=== PATIENT | female | born 1935 | race Caucasian/White ===

== ENCOUNTER 2016-12-24 18:21 | Emergency (ER) | payer MEDICARE ==
[~2016-12-24] VITALS: Ht 162.6 cm; Wt 82.7 kg
[~2016-12-24 18:21] MED LIST: ALLO300T2 PO; ALPR0.254 PO; ASPI-973 PO; BACL10TA PO; CHOL10008 PO; CLOB59SP3 TP; CYAN100017 SL; DOCU250C2 PO; ERGO400T7 PO; FURO-128 PO; INSU100V27 SQ; LISI10TA PO; METF500T4 PO; METO37.5 PO; NORT75CA PO; NPH,100V11 SUBQ; OMEP20CA11 PO; OXYC1TAB91 PO; PRAV10TA2 PO; VEGETABLE LAXATIVE PO
[2016-12-24 18:30] VITALS: BP 115/63; PULSE 81; RESP 20; O2SAT 98
--- NOTE | 2016-12-24 20:19 | ED.REPORT ---
HPI-Trauma Minor / Fall Date of Service Dec 24, 2016 ED Provider: Nestor Torres MD An 81 year old female with a history of lumbar stenosis, arthritis, restless leg syndrome, hypertension, stage III kidney disease and diabetes mellitus presents to the ED with back pain and hip pain secondary to a GLF that occurred this afternoon. The patient was reportedly stepping out of her vehicle, began to experience uncontrollable and tremors in her leg, was unable to control her leg movements fell backward onto her buttock. She rates her current pain as a 4/ 10. She endorses numbness in her feet upon examination. She denies any LOC, head injury or vomiting following the fall. Patient has been experiencing recent tremors in her extremities for the past few months and has been seen by Dr. Lopez. Last appointment with Dr. Lopez was 1 week ago. Work-up did not suggest evidence of Parkinson's disease. Patient has not yet been able to see a neurologist. Nursing Notes Stated Complaint: FELL, BACK/HIP PAIN Chief Complaint: Extremity Trauma Nursing Notes Reviewed: Yes Allergies: Coded Allergies: Penicillins (Verified Allergy, Severe, Full Body Rash, 12/24/16) Sulfa (Sulfonamide Antibiotics) (Verified Allergy, Severe, Swelling of Lips, 12/24/16) ezetimibe (Verified Allergy, Intermediate, unk, 12/24/16) gabapentin (Verified Allergy, Intermediate, unk, 12/24/16) simvastatin (Verified Allergy, Intermediate, unk, 12/24/16) NSAIDS (Non-Steroidal Anti-Inflamma (Verified Adverse Reaction, Severe, Stricture of Esophagus, 12/24/16) codeine (Verified Adverse Reaction, Severe, Nausea,Vomiting, 12/24/16) Scheduled ([vegetable laxative]) 2-3 TAB PO DAILY Allopurinol (Allopurinol) 300 Mg Tablet 300 MG PO DAILY Aspirin (Aspirin) 81 Mg Tablet 81 MG PO DAILY Baclofen (Baclofen) 10 Mg Tablet 10 MG PO TID Cholecalciferol (Vitamin D3) (Vitamin D3) 1,000 Unit Tab.chew 1,000 UNIT PO DAILY Clobetasol Propionate (Clobetasol Propionate) 0.05 % [place] 59 ML TP BID Cyanocobalamin (Vitamin B-12) (Vitamin B-12) 1,000 Mcg Tab.subl 1,000 MCG SL DAILY Ergocalciferol (Vitamin D2) (Vitamin D2) 400 Unit Tablet 400 UNIT PO DAILY Furosemide (Lasix) 40 Mg Tablet 40 MG PO BID Insulin Regular, Human (Novolin-R U100 Insulin Vial) 100 Unit/1 Ml Vial 22 SQ ACHS Lisinopril (Lisinopril) 10 Mg Tablet 10 MG PO DAILY Metformin (Metformin) 500 Mg Tablet 1,000 MG PO BID Metoprolol Tartrate (Metoprolol Tartrate) 37.5 Mg Tablet 37.5 MG PO BID NPH, Human Insulin Isophane (HUMulin-N U100 Insulin Vial) 100 Unit/1 Ml Vial 10 UNIT SUBQ BIDWM Nortriptyline (Nortriptyline) 75 Mg Capsule 75 MG PO DAILY Omeprazole (Omeprazole) 20 Mg Capsule.dr 20 MG PO BID Pravastatin (Pravastatin) 10 Mg Tablet 10 MG PO HS Scheduled PRN Alprazolam (Alprazolam) 0.25 Mg Tablet 0.25-0.5 MG PO HS PRN PRN For Anxiety Docusate Sodium (Docusate Sodium) 250 Mg Capsule 4 TABLET PO DAILY PRN PRN For Constipation Oxycodone HCl/Acetaminophen (Endocet 10-325 mg Tablet) 1 Each Tablet 1 EACH PO QID PRN PRN prn General Time Seen by MD: 20:18 Chief Complaint Fall Hx Obtained From: Patient Arrived By: Walk-in Onset Occurred: 1 - 4 hours ago Symptom Duration: Since onset Caused by: Accidental Location: Hip left Hip right Quality: Painful Severity: Current: Pain level 4 out of 10 Severity: Maximum: Pain level 4 out of 10 Associated with: Reports: Numb extremities, Denies: Headache, Loss of consciousness, Vomiting Pertinent Negative: Pt denies other symptoms Recent Healthcare: No recent hospitalization, Recent doctor visit Past Medical History Past Medical History Notes: PCP: Dr. Donis Lopez November 15, 2013 Normal treadmill stress test Past Medical History 1. Kidney disease, stage III 2. Hx of anemia 3. Acute on-chronic renal failure 4. Arthritis 5. Gout 6. Diabetes mellitus 7. Hypertension Past Surgical History 1. Thumb surgery 2. Bilateral knee surgery 3. Vein removal 4. Appendectomy 5. Hysterectomy 6. Tonsillectomy Family History Non-contributory Smoking History Never Smoker Social History Alcohol Use: Denies alcohol use Drug Use: Denies drug use Other Social History: Good social support, Local resident Occupation Retired Ambulatory Status Independent (Denies previously using a walker) Review of Systems Musculoskeletal: Reports: Back pain, Joint pain (Bilateral hip pain) Neurologic: Reports: Numbness (in lower extremities), Denies: Change LOC, Headache Complete sys rev & neg: except as marked. GI: Denies: Vomiting Physical Exam Initial Vital Signs Vital Signs (First) Date Time Temp Pulse Resp B/P Pulse Ox O2 Delivery O2 Flow Rate FiO2 12/24/16 18:30 36.3 81 20 115/63 98 Room Air Initial VS: Reviewed Head / Eyes: Atraumatic, Normocephalic, PERRL Skin: Warm, Dry, No cyanosis Neurologic: Alert, Oriented, Nonfocal Psychiatric: Mood/affect normal, Behavior normal, Normal thought content General/Constitutional: Awake, Alert, No acute distress Neck: Atraumatic, Supple, Non-tender Respiratory / Chest: Atraumatic, Breath sounds NL, Breath sounds = bilat, No respiratory distress Cardiovascular: Heart rate NL, Regular rhythm, Heart sounds NL, No gallop, No murmurs, No rubs Abdomen: Atraumatic, Soft Back: Atraumatic, No midline vertebral tend Upper Extremity / MS: Atraumatic, Inspection NL, Neurologic intact, Vascular intact Lower Extremity / Pelvis / MS: Atraumatic, Inspection NL, Full range of motion , No swelling, Non-tender, Neurologic intact, Vascular intact (Good DP and PT pulses) Lower Ext Brief Normals: Hip R exam normal, Hip L exam normal Lower extremity strength is 5/5 Interpretation & Diagnostics 12/16/2016 - PREVIOUS MRI Read by Radiology IMPRESSION: 1. Plain films of the lumbar spine are recommended for numbering purposes, prior to any lumbar spinal intervention. 2. Severe canal stenosis L4-L5 secondary to disc and facet disease, as well as ligamentum flavum hypertrophy. Additionally, moderate to severe bilateral L4-L5 foraminal stenosis is present, with possible flattening deformity of the exiting L4 nerve roots bilaterally. 3. Grade I spondylolisthesis at L4-L5. Dictated by: April Barajas M.D. on 12/16/2016 at 9:39 Lab Results Interpretation Result Diagram: 12/24/16205412/24/162054 Test 12/24/16 20:55 White Blood Count 10.4th/mm3 (3.8-10.1) Red Blood Count 3.19mil/mm3 (3.90-5.20) Hemoglobin 9.9g/dL (12.0-15.6) Hematocrit 31.1% (35.0-46.0) Mean Corpuscular Volume 97.5fL (81-100) Mean Corpuscular Hemoglobin 31.0pg (27.0-35.0) Mean Corpuscular Hemoglobin Concent 31.8% (32.0-37.0) Red Cell Distribution Width 14.0% (12.3-15.4) Platelet Count 258bil/L (150-400) Neutrophils (%) (Auto) 64.0% (40-74) Lymphocytes (%) (Auto) 15.8% (14-46) Monocytes (%) (Auto) 5.8% (4-12) Eosinophils (%) (Auto) 13.8% (0-5) Basophils (%) (Auto) 0.4% (0-3) Sodium Level 137mEq/L (134-144) Potassium Level 4.8mEq/L (3.5-5.2) Chloride Level 97mEq/L (97-108) Carbon Dioxide Level 23mmol/L (18-29) Blood Urea Nitrogen 42mg/dL (8-27) Creatinine 1.69mg/dL (0.57-1.00) Estimat Glomerular Filtration Rate 42mL/min (>59) Glucose Level 207mg/dL (60-99) Calcium Level 9.4mg/dL (8.5-10.1) Magnesium Level 1.9mg/dL (1.6-2.6) Total Bilirubin 0.2mg/dL (0.0-1.2) Aspartate Amino Transf (AST/SGOT) 17U/L (0-50) Alanine Aminotransferase (ALT/SGPT) 17U/L (0-32) Alkaline Phosphatase 73U/L (25-165) Total Protein 6.8g/dL (6.4-8.4) Albumin 3.8g/dL (3.4-5.0) Hold Contreras Top Tube Received (Received) X-Ray Interpretation Xray Interpretation: IMPRESSION: No fracture or dislocation. If clinical symptoms persist or clinical suspicion for pathology is high, a repeat examination in 7-10 days, or advanced imaging such as CT or MRI is suggested for further evaluation. Dictated by: Radha Celaya M.D. on 12/24/2016 at 20:18 X-Ray Ordered: Pelvis Interpretation / Wet Read by: Interpret - Radiologist Re-Eval/Medical Decision Med Decision/Clinical Course 81-year-old female with some pre-existing and diagnosed movement disorder who suffered a ground-level fall because of that tonight. She does not appear to have any significant injuries. She has primary care with whom she can follow for further evaluation, she is able to get around enough to support activities of daily living and we will try a walker to hopefully steady her. Re-Evaluation/Progress : Time of Eval: 22:56 Patient Status: Pain improved Re-Evaluation/Progress Note: Patient condition is re-evaluated. Her pain has significantly improved. She is informed of her current results and the intended treatment plan. All questions are addressed. She nderstands and agrees with the plan. Counseled Regarding: Diagnosis, Lab results, Need for follow-up, When/why to return to ED Discharge & Departure Impression: Primary Impression: Fall from ground level Additional Impression: Contusion of right hip Encounter type: initial encounter Qualified Code: S70.01XA - Contusion of right hip, initial encounter Disposition: Home Discharge Condition All VS Reviewed: Yes Condition: Improved Patient Instructions: Fall Prevention (ED), Hip Pain (ED), How to Choose and Use a Walker (GEN) Additional Instructions: Thank you for entrusting us with your care today. Your emergency department evaluation today included interview, examination, lab work, and pelvic X-ray. An emergent cause for your symptoms was identified at this time and your X-ray was negative for fracture. Take Tylenol as needed for pain. A prescription for a walker with a seat is provided, hopefully this will help steady you on your feet Schedule a follow-up appointment with your primary care physician in the next week for a recheck. I recommend that you ask Dr. Lopez about a neurology follow -up as well. Please return to the emergency department for any new or worsening conditions including any worsening pain, numbness/tingling in your legs, headache, nausea, vomiting or any other concerning symptoms. Referrals: Donis Lopez MD (PCP) Scribe Attestation Portions of this note were transcribed by Selina Sanchez. I, Dr. Torres, personally performed the history, physical exam and medical decision-making; I reviewed and confirmed the accuracy of the information in the transcribed note. Signed by: Selina Sanchez, 12/24/16. copies to: Donis Lopez MD, Donald L MD Dec 24, 2016 20:19 SELINA SANCHEZ Dec 24, 2016 20:26
--- NOTE | 2016-12-24 20:21 | DRSVH ---
PROCEDURE: X-RAY PELVIS W/LAT HIP (RT) ([id number]) INDICATIONS: fall, injury, pain TECHNIQUE: AP pelvis with lateral view(s) of the right hip(s). COMPARISON: None. FINDINGS: Bones: No fractures or dislocations. Pelvic ring appears intact. No suspicious bony lesions. Soft tissues: The visualized bowel gas pattern is normal. No suspicious soft tissue calcifications. IMPRESSION: No fracture or dislocation. If clinical symptoms persist or clinical suspicion for patho logy is high, a repeat examination in 7-10 days, or advanced imaging such as CT or MRI is suggested f or further evaluation. Dictated by: Radha Celaya M.D. on 12/24/2016 at 20:18 Approved by: Radha Celaya M.D. on 12/24/2016 at 20:19
[2016-12-24 21:06] LABS: BASOPHILS % (AUTO) 0.4 % (0-3); EOSINOPHILS % (AUTO) 13.8 % (0-5); MONOCYTES % (AUTO) 5.8 % (4-12); Mean Corpuscular Volume 97.5 fL (81-100); Platelet Count 258 bil/L (150-400)
[2016-12-24 21:21] VITALS: BP 106/51; PULSE 81; RESP 16; O2SAT 92
[2016-12-24 21:32] LABS: Magnesium 1.9 mg/dL (1.6-2.6)
== END 2016-12-24 23:44 | disposition home or self-care (01) ==
LOC: SED 18:21
DX: S70.01XA Contusion of right hip, initial encounter (principal); M54.9 Dorsalgia, unspecified; W18.39XA Other fall on same level, initial encounter; Y93.89 Activity, other specified; Y92.009 Unspecified place in unspecified non-institutional (private) residence as the place of occurrence of the external cause; Y99.8 Other external cause status; I12.9 Hypertensive chronic kidney disease with stage 1 through stage 4 chronic kidney disease, or unspecified chronic kidney disease; D64.9 Anemia, unspecified; E11.22 Type 2 diabetes mellitus with diabetic chronic kidney disease; N18.3 Chronic kidney disease, stage 3 (moderate); Z88.0 Allergy status to penicillin; Z88.2 Allergy status to sulfonamides; Z88.8 Allergy status to other drugs, medicaments and biological substances; Z88.6 Allergy status to analgesic agent; Z88.5 Allergy status to narcotic agent; Z79.82 Long term (current) use of aspirin; Z79.4 Long term (current) use of insulin; Z79.84 Long term (current) use of oral hypoglycemic drugs